=== PATIENT | male | born 1965 | race Caucasian/White ===

== ENCOUNTER 2017-10-01 09:03 | Outpatient (CLI) | payer OTHER ==
--- NOTE | 2017-10-01 10:40 | ULT ---
THYROID ULTRASOUND: Indications: Hyperthyroidism. FINDINGS: Both lobes of the thyroid are enlarged and very heterogeneous. No defined mass or nodule identified. The right lobe measures 2.0 cm width x 4.5 cm length x 2.0 cm thickness. The left lobe measures 1.8 cm width x 4.0 cm x 3.0 cm AP. IMPRESSION: Both lobes are enlarged and very heterogeneous. Findings could represent a diffuse thyroiditis. POS: [facility]
== END 2017-10-01 09:04 | disposition home or self-care (01) ==
LOC: SCSULT 09:03
PROVIDERS: ATTEND Internal Medicine
DX: E04.2 Nontoxic multinodular goiter (principal); E03.9 Hypothyroidism, unspecified
CPT/HCPCS: 76536

== ENCOUNTER 2018-04-18 09:11 | Outpatient (CLI) | payer OTHER ==
--- NOTE | 2018-04-18 11:34 | ULT ---
THYROID ULTRASOUND: Date: 04-18-18 History: Hypothyroidism. Comparison: 10-01-17 FINDINGS: The thyroid gland again demonstrates generalized heterogeneity without a defined discrete measurable nodule seen in either lobe of the thyroid gland. The right lobe of the thyroid gland measures 4.9 cm x 2.4 cm x 2.5 cm with the left lobe measuring 4. 9 cm x 2.7 cm x 2.4 cm. The thyroid isthmus measures 0.3 cm in AP dimensions. IMPRESSION: Stable generalized heterogeneity of the thyroid gland without a discrete thyroid nodule visualized. POS: [facility]
== END 2018-04-18 09:12 | disposition home or self-care (01) ==
LOC: SCSULT 09:11
PROVIDERS: ATTEND Internal Medicine
DX: E03.9 Hypothyroidism, unspecified (principal); E04.2 Nontoxic multinodular goiter
CPT/HCPCS: 76536